=== PATIENT | male | born 1960 | race Caucasian/White ===

== ENCOUNTER 2021-10-22 07:38 | Inpatient (IN) | payer OTHER ==
[2021-10-22 08:04] VITALS: BMI 32.6
[2021-10-22] MEDS ORDERED: ONDANSETRON *ODT* 4 MG TABLET SL PRN (09:39)
[2021-10-22] MEDS ORDERED: IBUPROFEN 400 MG TABLET (FP) PO PRN (09:39)
[2021-10-22] MEDS ORDERED: NICOTINE POLACRILEX 2 MG GUM BUC PRN (09:39)
[2021-10-22] MEDS ORDERED: MAGNESIUM HYDROX 2400MG/30ML ORAL SUSPENSION 30 ML CUP PO PRN (09:39)
[2021-10-22] MEDS ORDERED: ACETAMINOPHEN 325 MG TABLET (FP) PO PRN ×2 (09:39)
[2021-10-22] MEDS ORDERED: LOPERAMIDE HCL 2 MG CAPSULE PO PRN (09:39)
[2021-10-22] MEDS ORDERED: BISMUTH SUBSALICYLATE 524 MG/30 ML PO PRN (09:39)
[2021-10-22] MEDS ORDERED: MENTHOL/PHENOL 1 EACH UD MM PRN (09:39)
[2021-10-22] MEDS ORDERED: MAGNESIUM CITRATE 300 ML BOTTLE PO PRN (09:39)
[2021-10-22] MEDS ORDERED: MAG HYDROX/AL HYDROX/SIMETH 30 ML UNIT-DOSE CUP PO PRN (09:39)
[2021-10-22] MEDS ORDERED: chlordiazePOXIDE HCL 25 MG CAPSULE ONE ×2 (10:10→12:33)
[2021-10-22] MEDS: chlordiazePOXIDE HCL 25 MG CAPSULE PO SCH ×3 (10:12→22:10)
[2021-10-22] MEDS: chlordiazePOXIDE HCL 25 MG CAPSULE PO PRN (12:34)
[2021-10-22] MEDS: PRENATAL VITAMINS W/ FOLIC ACID TABLET (FP) PO SCH (14:56)
[2021-10-22] MEDS: METHOCARBAMOL 500 MG TABLET PO PRN (14:56)
[2021-10-22] MEDS: hydrOXYzine PAMOATE 25 MG CAPSULE (FP) PO SCH ×4 (14:56→22:09)
[2021-10-22] MEDS: THIAMINE HCL 100 MG TABLET (FP) PO SCH (22:09)
[2021-10-22] MEDS: MELATONIN 5 MG TABLETS PO SCH (22:09)
[2021-10-23] MEDS: hydrOXYzine PAMOATE 25 MG CAPSULE (FP) PO SCH ×5 (06:04→22:02)
[2021-10-23] MEDS: chlordiazePOXIDE HCL 25 MG CAPSULE PO SCH ×4 (06:05→22:02)
[2021-10-23] MEDS: PRENATAL VITAMINS W/ FOLIC ACID TABLET (FP) PO SCH (10:06)
[2021-10-23] MEDS: METHOCARBAMOL 500 MG TABLET PO PRN (10:06)
[2021-10-23 11:16] LABS: HEMATOCRIT 41.2 % (35.4-49); HEMOGLOBIN 13.6 GM/dL (11.7-16.9); MCH 29.6 pg (25.7-33.7); MEAN CELL VOLUME 89.6 fl (80-96); PLATELET COUNT 171 10^3/uL (134-434); RBC 4.59 M/mm3 (4.00-5.60); RDW 14.2 % (11.9-15.9); WHITE BLOOD COUNT 5.5 K/mm3 (4.0-10.0)
[2021-10-23 11:29] LABS: ALBUMIN 3.5 g/dl (3.4-5.0); BLOOD UREA NITROGEN 13.2 mg/dL (7-18); CALCIUM 8.7 mg/dL (8.5-10.1)
[2021-10-23 11:32] LABS: CREATININE 0.9 mg/dL (0.55-1.3)
[2021-10-23 11:34] LABS: BILIRUBIN,TOTAL 2.3 mg/dL (0.2-1); TOT PROT 6.5 g/dl (6.4-8.2)
[2021-10-23] MEDS: chlordiazePOXIDE HCL 25 MG CAPSULE PO PRN (14:10)
[2021-10-23] MEDS ORDERED: POTASSIUM CHLORIDE ORAL LIQUID 20 MEQ/15 ML PO ONE ×2 (14:30→18:30)
[2021-10-23] MEDS: THIAMINE HCL 100 MG TABLET (FP) PO SCH (22:01)
[2021-10-23] MEDS: MELATONIN 5 MG TABLETS PO SCH (22:01)
[2021-10-24] MEDS: hydrOXYzine PAMOATE 25 MG CAPSULE (FP) PO SCH ×5 (05:56→22:19)
[2021-10-24] MEDS: chlordiazePOXIDE HCL 25 MG CAPSULE PO SCH ×4 (05:57→22:19)
[2021-10-24] MEDS: PRENATAL VITAMINS W/ FOLIC ACID TABLET (FP) PO SCH (10:31)
[2021-10-24 12:03] LABS: CALCIUM 9.4 mg/dL (8.5-10.1)
[2021-10-24 12:04] LABS: ALBUMIN 3.5 g/dl (3.4-5.0); BLOOD UREA NITROGEN 14.4 mg/dL (7-18)
[2021-10-24 12:08] LABS: BILIRUBIN,TOTAL 1.1 mg/dL (0.2-1); TOT PROT 6.5 g/dl (6.4-8.2)
[2021-10-24] MEDS ORDERED: chlordiazePOXIDE HCL 25 MG CAPSULE PO ONE (14:00)
[2021-10-24] MEDS: MELATONIN 5 MG TABLETS PO SCH (22:18)
[2021-10-24] MEDS: THIAMINE HCL 100 MG TABLET (FP) PO SCH (22:19)
[2021-10-25] MEDS ORDERED: chlordiazePOXIDE HCL 10 MG CAPSULE PO PRN
[2021-10-25] MEDS: hydrOXYzine PAMOATE 25 MG CAPSULE (FP) PO SCH ×5 (06:07→23:05)
[2021-10-25] MEDS: chlordiazePOXIDE HCL 10 MG CAPSULE PO SCH ×4 (06:07→22:57)
[2021-10-25] MEDS: METHOCARBAMOL 500 MG TABLET PO PRN (10:44)
[2021-10-25] MEDS: PRENATAL VITAMINS W/ FOLIC ACID TABLET (FP) PO SCH (10:44)
[2021-10-25] MEDS: MELATONIN 5 MG TABLETS PO SCH (23:05)
[2021-10-25] MEDS: THIAMINE HCL 100 MG TABLET (FP) PO SCH (23:06)
[2021-10-26] MEDS: chlordiazePOXIDE HCL 10 MG CAPSULE PO SCH ×2 (06:14→18:36)
[2021-10-26] MEDS: hydrOXYzine PAMOATE 25 MG CAPSULE (FP) PO SCH ×5 (06:15→22:41)
[2021-10-26] MEDS: METHOCARBAMOL 500 MG TABLET PO PRN (11:01)
[2021-10-26] MEDS: PRENATAL VITAMINS W/ FOLIC ACID TABLET (FP) PO SCH (11:01)
[2021-10-26] MEDS: THIAMINE HCL 100 MG TABLET (FP) PO SCH (22:40)
[2021-10-26] MEDS: MELATONIN 5 MG TABLETS PO SCH (22:40)
[2021-10-27] MEDS ORDERED: chlordiazePOXIDE HCL 10 MG CAPSULE PO ONE (05:00)
[2021-10-27] MEDS: hydrOXYzine PAMOATE 25 MG CAPSULE (FP) PO SCH ×2 (06:21→10:13)
[2021-10-27 09:22] VITALS: BP 105/61; PULSE 90; TEMP 97.3
[2021-10-27] MEDS: PRENATAL VITAMINS W/ FOLIC ACID TABLET (FP) PO SCH (10:13)
== END 2021-10-27 11:39 | disposition home or self-care (01) | DRG 897 ==
LOC: YASAS 07:38 → Y6N 13:49
PROVIDERS: ADMIT Allergy & Immunology; ATTEND Allergy & Immunology
PROC: HZ2ZZZZ Detoxification Services for Substance Abuse Treatment (ICD-10-PCS; principal; 2021-10-22)
DX: F10.230 Alcohol dependence with withdrawal, uncomplicated (principal); F19.280 Other psychoactive substance dependence with psychoactive substance-induced anxiety disorder; N39.0 Urinary tract infection, site not specified; F17.210 Nicotine dependence, cigarettes, uncomplicated; F19.24 Other psychoactive substance dependence with psychoactive substance-induced mood disorder; F31.9 Bipolar disorder, unspecified; R79.89 Other specified abnormal findings of blood chemistry; Z91.51 Personal history of suicidal behavior; Z89.012 Acquired absence of left thumb; Z89.011 Acquired absence of right thumb; Z89.022 Acquired absence of left finger(s); Z89.021 Acquired absence of right finger(s); Z89.412 Acquired absence of left great toe; Z89.411 Acquired absence of right great toe; Z89.422 Acquired absence of other left toe(s)
CPT/HCPCS: 36415; 80053; 85027; 86780; 93005; 93010; C9803; U0003; U0005

== ENCOUNTER 2025-07-03 23:03 | Inpatient (IN) | payer OTHER ==
[2025-07-03 18:17] VITALS: BMI 29.8
[~2025-07-03 23:03] MED LIST: ACETAMINOPHEN 325 MG TABLET (FP) PO PRN; BENZOCAINE/MENTHOL (CHLORASEPTIC ) LOZENGE MM PRN; BENZONATATE 200 MG CAPSULE PO PRN; BISMUTH SUBSALICYLATE 524 MG/30 ML PO PRN; DICYCLOMINE HCL 10 MG CAPSULE PO PRN; IBUPROFEN 400 MG TABLET (FP) PO PRN; IBUPROFEN 600 MG TABLET (FP) PO PRN; LOPERAMIDE HCL 2 MG CAPSULE PO PRN; MAG HYDROX/AL HYDROX/SIMETH 30 ML UNIT-DOSE CUP PO PRN; MAGNESIUM HYDROX 2400MG/30ML ORAL SUSPENSION 30 ML CUP PO PRN; MELATONIN 5 MG TABLETS PO SCH; METHOCARBAMOL 500 MG TABLET PO PRN; METOPROLOL TARTRATE 25 MG TABLET (FP) ONE; NALOXONE (NARCAN) HCL 4 MG/0.1 ML SPRAY NS PRN; NICOTINE POLACRILEX 2 MG GUM BUC PRN; NICOTINE POLACRILEX 2 MG LOZENGE BC PRN; ONDANSETRON *ODT* 4 MG TABLET ONE; ONDANSETRON *ODT* 4 MG TABLET SL PRN; P-EPHED 60MG/TRIPROLIDI 2.5MG TABLET PO PRN; POLYETHYLENE GLYCOL (HEALTHYLAX) 3350 17 GM PACKET PO PRN; THIAMINE 100 MG TABLET PO SCH; guaiFENesin 600 MG TABLET.ER (FP) PO PRN; hydrOXYzine PAMOATE 25 MG CAPSULE (FP) PO PRN; levETIRAcetam 500 MG TABLET (FP) PO ONE; levETIRAcetam 500 MG TABLET (FP) PO SCH
[2025-07-04] MEDS ORDERED: NALOXONE (NARCAN) HCL 4 MG/0.1 ML SPRAY NS PRN (00:17)
[2025-07-04] MEDS ORDERED: POLYETHYLENE GLYCOL (HEALTHYLAX) 3350 17 GM PACKET PO PRN (00:17)
[2025-07-04] MEDS ORDERED: DICYCLOMINE HCL 10 MG CAPSULE PO PRN (00:17)
[2025-07-04] MEDS ORDERED: hydrOXYzine PAMOATE 25 MG CAPSULE (FP) PO PRN (00:17)
[2025-07-04] MEDS ORDERED: IBUPROFEN 600 MG TABLET (FP) PO PRN (00:17)
[2025-07-04] MEDS ORDERED: ONDANSETRON *ODT* 4 MG TABLET SL PRN (00:17)
[2025-07-04] MEDS ORDERED: MAGNESIUM HYDROX 2400MG/30ML ORAL SUSPENSION 30 ML CUP PO PRN (00:17)
[2025-07-04] MEDS ORDERED: BENZOCAINE/MENTHOL (CHLORASEPTIC ) LOZENGE MM PRN (00:17)
[2025-07-04] MEDS ORDERED: guaiFENesin 600 MG TABLET.ER (FP) PO PRN (00:17)
[2025-07-04] MEDS ORDERED: MAG HYDROX/AL HYDROX/SIMETH 30 ML UNIT-DOSE CUP PO PRN (00:17)
[2025-07-04] MEDS ORDERED: IBUPROFEN 400 MG TABLET (FP) PO PRN (00:17)
[2025-07-04] MEDS ORDERED: LOPERAMIDE HCL 2 MG CAPSULE PO PRN (00:17)
[2025-07-04] MEDS ORDERED: BENZONATATE 200 MG CAPSULE PO PRN (00:17)
[2025-07-04] MEDS ORDERED: BISMUTH SUBSALICYLATE 524 MG/30 ML PO PRN (00:17)
[2025-07-04] MEDS ORDERED: ACETAMINOPHEN 325 MG TABLET (FP) PO PRN (00:17)
[2025-07-04] MEDS ORDERED: NICOTINE POLACRILEX 2 MG GUM BUC PRN (00:24)
[2025-07-04] MEDS: METOPROLOL TARTRATE 50 MG TABLET (FP) PO ONE (01:06)
[2025-07-04] MEDS: levETIRAcetam 500 MG TABLET (FP) PO ONE (01:56)
[2025-07-04] MEDS: levETIRAcetam 500 MG TABLET (FP) PO SCH (09:55)
[2025-07-04] MEDS: PRENATAL VITAMINS W/ FOLIC ACID TABLET (FP) PO SCH (09:55)
[2025-07-04] MEDS: NICOTINE 14 MG/24 HOURS TOPICAL PATCH TD SCH (09:57)
[2025-07-04] MEDS ORDERED: PRENATAL VITAMINS W/ FOLIC ACID TABLET (FP) PO SCH (10:00)
[2025-07-04 12:37] LABS: MCHC 32.7 g/dl (32.3-36.5); MEAN CELL VOLUME 90.4 fl (79.0-92.2); MEAN PLT VOLUME 11.4 fl (9.4-12.4); RDW 14.1 % (12.2-16.4)
[2025-07-04 12:45] LABS: GLUCOSE,RANDOM 92.0 mg/dL (74-106); TOT PROT 6.4 g/dl (6.4-8.2)
[2025-07-04 12:46] LABS: CO2 23.0 mmol/L (21-32)
[2025-07-04 12:48] LABS: ALK PHOS 128.0 U/L (40-150)
[2025-07-04 12:50] LABS: SGPT/ALT 37.0 U/L (0-55)
[2025-07-04 12:51] LABS: CREATININE 0.88 mg/dL (0.55-1.3); SGOT/AST 37.0 U/L (5-34)
[2025-07-04] MEDS: FLU VACC TS2025-26(6MOS UP)/PF 45 MCG/0.5 ML SYRINGE IM ONE ×2 (13:58→14:13)
[2025-07-04] MEDS: MELATONIN 5 MG TABLETS PO SCH (22:13)
[2025-07-04] MEDS: THIAMINE 100 MG TABLET PO SCH (22:13)
[2025-07-07] MEDS: NALTREXONE HCL 50 MG TABLET PO ONE (14:53)
[2025-07-07] MEDS: METOPROLOL TARTRATE 25 MG TABLET (FP) PO ONE (22:09)
[2025-07-08 05:58] VITALS: RESP 16
[2025-07-08 08:46] VITALS: BP 100/58; PULSE 74; TEMP 97.3
[2025-07-08] MEDS: NALTREXONE HCL 50 MG TABLET PO SCH (09:19)
== END 2025-07-08 11:40 | disposition home or self-care (01) | DRG 897 ==
LOC: YASAS 23:03 → Y3N 07-04 00:59
PROVIDERS: ADMIT Allergy & Immunology; ATTEND Student in an Organized Health Care Education/Training Program
PROC: HZ2ZZZZ Detoxification Services for Substance Abuse Treatment (ICD-10-PCS; principal; 2025-07-04)
DX: F10.230 Alcohol dependence with withdrawal, uncomplicated (principal); F17.210 Nicotine dependence, cigarettes, uncomplicated; F31.9 Bipolar disorder, unspecified; I10 Essential (primary) hypertension; Z86.69 Personal history of other diseases of the nervous system and sense organs
CPT/HCPCS: 36415; 80053; 80307; 85027; 86780; 93005; 93010